=== PATIENT | female | born 1975 | race Two or more races ===

== ENCOUNTER 2021-10-16 21:27 | Emergency (ER) | payer SELFPAY ==
[~2021-10-16] VITALS: Ht 165.1 cm; Wt 72.6 kg
[2021-10-16 21:40] VITALS: BP 155/90
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
[2021-10-16] MEDS ORDERED: LIDOCAINE 1%-EPI 1:100,000 20 ML VIAL ONE (21:56)
[2021-10-16] MEDS ORDERED: LIDOCAINE 1%-EPI 1:100,000 20 ML VIAL TP ONE (22:00)
--- NOTE | 2021-10-16 22:18 | NUR ---
PA AT BEDSIDE DOING SUTURING OF WOUND.
--- NOTE | 2021-10-16 23:00 | NUR ---
Patient discharged to home in stable condition. Written and verbal after care instructions given. Patient verbalizes understanding of instruction.
== END 2021-10-16 23:00 | disposition home or self-care (01) ==
LOC: ER 21:28
DX: S71.111A Laceration without foreign body, right thigh, initial encounter (principal); W26.0XXA Contact with knife, initial encounter; Y93.89 Activity, other specified; Y92.89 Other specified places as the place of occurrence of the external cause; Y99.8 Other external cause status
CPT/HCPCS: 12001; 99283; J3490

== ENCOUNTER 2021-10-26 18:15 | Emergency (ER) | payer SELFPAY ==
[~2021-10-26] VITALS: Ht 165.1 cm; Wt 61.7 kg
[2021-10-26 18:25] VITALS: BP 123/72
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
--- NOTE | 2021-10-26 19:02 | NUR ---
Patient discharged to home in stable condition. Written and verbal after care instructions given. Patient verbalizes understanding of instruction.
== END 2021-10-26 19:03 | disposition home or self-care (01) ==
LOC: ER 18:20
DX: S71.111D Laceration without foreign body, right thigh, subsequent encounter (principal); W26.0XXD Contact with knife, subsequent encounter